=== PATIENT | male | born 1990 | race Caucasian/White ===

== ENCOUNTER 2020-04-22 17:03 | Emergency (ER) | payer BC, MEDICAID ==
[~2020-04-22] VITALS: Ht 172.7 cm; Wt 84.7 kg
[2020-04-22] MEDS ORDERED: ONDANSETRON 4MG/2ML VIAL IV ONE (19:15)
[2020-04-22] MEDS ORDERED: KETOROLAC 30 MG/ML 1ML VIAL IV ONE (19:15)
[2020-04-22] MEDS ORDERED: NS 1,000 ML IV ONE (19:15)
--- NOTE | 2020-04-22 19:19 | REPVR ---
PROCEDURE INFORMATION: Exam: XR Chest, 2 Views Exam date and time: 04/22/2020 7:16 PM Age: 29 years old Clinical indication: Other: Chest pain TECHNIQUE: Imaging protocol: XR of the chest Views: 2 views. COMPARISON: No relevant prior studies available. FINDINGS: Lungs: Unremarkable. No consolidation. Pleural space: Unremarkable. No pleural effusion. No pneumothorax. Heart/Mediastinum: Unremarkable. No cardiomegaly. Bones/joints: Unremarkable. IMPRESSION: No acute findings. Electronically signed by: Souleymane Cuellar On 04/22/2020 19:19:06 PM
[2020-04-22 19:35] LABS: HEMATOCRIT 43.6 % (42.0-52.0); HEMOGLOBIN 14.7 g/dl (13.5-17.5); MEAN CORPUSCULAR HGB CONC 33.7 g/dl (32.0-36.5); RED BLOOD COUNT 4.74 10^6/uL (4.30-6.10); WHITE BLOOD COUNT 7.2 10^3/uL (4.0-10.0)
[2020-04-22 19:36] LABS: BASO % 0.4 % (0.0-1.0); EOS # 0.1 10^3/uL (0.0-0.5); EOS % 1.4 % (0.0-3.0); LYMPH # 2.8 10^3/uL (1.5-5.0); LYMPH % 38.4 % (24.0-44.0); MONO # 0.6 10^3/uL (0.0-0.8); MONO % 7.9 % (0.0-5.0); NEUTROPHILS # 3.7 10^3/uL (1.5-8.5); NEUTROPHILS % 51.6 % (36.0-66.0); PLATELET COUNT, AUTOMATED 282 10^3/uL (150-450)
[2020-04-22 20:08] LABS: ALBUMIN 4.3 GM/DL (3.2-5.2); ALT/SGPT 41 U/L (12-78); BILIRUBIN,DIRECT 0.1 MG/DL (0.0-0.2); BILIRUBIN,TOTAL 0.4 MG/DL (0.2-1.0); CK-MB VALUE MASS 1.1 NG/ML (<3.6); CPK CREATINE PHOSPHOKINASE 166 U/L (39-308); LIPASE 143 U/L (73-393); MB/CK RELATIVE INDEX 0.66 (< OR =4); TROPONIN I < 0.02 NG/ML (< 0.10)
[2020-04-22 20:24] LABS: BLOOD UREA NITROGEN 16 MG/DL (7-18); CALCIUM LEVEL 9.6 MG/DL (8.5-10.1); CARBON DIOXIDE LEVEL 32 MEQ/L (21-32); CHLORIDE LEVEL 103 MEQ/L (98-107); CREATININE FOR GFR 0.78 MG/DL (0.70-1.30); GLOMERULAR FILTRATION RATE > 60.0 (>60); GLUCOSE, FASTING 90 MG/DL (70-100); POTASSIUM SERUM 4.1 MEQ/L (3.5-5.1); SODIUM LEVEL 138 MEQ/L (136-145)
[2020-04-22] MEDS ORDERED: CYCL-707 PO (20:29)
[2020-04-22] MEDS ORDERED: LIDOCAINE 5% (LIDODERM) PATCH TD ONE (20:30)
[2020-04-22] MEDS ORDERED: CYCLOBENZAPRINE 10MG TABLET PO ONE (20:30)
[2020-04-22 20:36] VITALS: BP 164/111
[2020-04-22] MEDS ORDERED: **NOTE PATIENT COMMENT** MISC XX SCH (21:00)
--- NOTE | 2020-04-23 07:34 | ECGEPIP ---
[facility] - ED Test Date: 2020-04-22 Pat Name: CINTHIA OCONNELL Department: Room: - Gender: Male Emergency Room Nurse: ESTEFANIA : 1990 Requested By: BLAINE THOMAS Order Number: [id number] Reading MD: Jaden Melgar Measurements Intervals Hardy Rate: 65 P: 69 AK: 149 QRS: 65 QRSD: 92 T: 52 QT: 387 QTc: 403 Interpretive Statements SINUS RHYTHM NO PRIORS FOR COMPARISON Electronically Signed on 04-23-2020 7:34:35 EDT by Jaden Melgar
== END 2020-04-22 20:47 | disposition home or self-care (01) ==
LOC: M ED 17:03
DX: M54.5 Low back pain (principal); R07.89 Other chest pain; R11.0 Nausea; F17.200 Nicotine dependence, unspecified, uncomplicated
CPT/HCPCS: 71046; 80048; 80076; 81001; 82550; 82553; 83690; 85025; 87490; 87590; 93005; 96361; 96374; 96375; 99284; J1885; J2405

== ENCOUNTER 2020-11-21 11:15 | Emergency (ER) | payer OTHER, BC ==
[~2020-11-21] VITALS: Ht 175.3 cm; Wt 88.5 kg
[~2020-11-21 11:15] MED LIST: CYCL-707 PO
--- NOTE | 2020-11-21 12:01 | REP ---
INDICATION: pain after rolling ankle. COMPARISON: None. TECHNIQUE: Four views of the right ankle are provided. FINDINGS: Ankle mortise is intact. No fracture or subluxation is seen. There is minimal anterior soft tissue swelling. Exam is otherwise unremarkable IMPRESSION: . Minimal anterior swelling. No fracture or subluxation seen. <Electronically signed by Hero Bautista > 11/21/20 [id number]
[2020-11-21 12:27] VITALS: BP 162/102
== END 2020-11-21 12:46 | disposition home or self-care (01) ==
LOC: M ED 11:15
DX: S93.411A Sprain of calcaneofibular ligament of right ankle, initial encounter (principal); X50.9XXA Other and unspecified overexertion or strenuous movements or postures, initial encounter; Y92.89 Other specified places as the place of occurrence of the external cause; Y99.0 Civilian activity done for income or pay; I10 Essential (primary) hypertension; F17.210 Nicotine dependence, cigarettes, uncomplicated

== ENCOUNTER → 2020-12-08 | Outpatient (REF) | payer BC ==
[2020-12-08 13:12] LABS: APPEARANCE, URINE CLEAR (CLEAR); BACTERIA, URINE AUTO NEGATIVE (NEGATIVE); BILIRUBIN, URINE AUTO NEGATIVE (NEGATIVE); BLOOD, URINE BLOOD NEGATIVE (NEGATIVE); COLOR, URINE YELLOW (YELLOW); GLUCOSE, URINE (UA) AUTO NEGATIVE (NEGATIVE); KETONE, URINE AUTO NEGATIVE (NEGATIVE); LEUKOCYTE ESTERASE, URINE AUTO NEGATIVE (NEGATIVE); MUCUS, URINE SMALL (NEGATIVE); NITRITE, URINE AUTO NEGATIVE (NEGATIVE); PROTEIN, URINE AUTO NEGATIVE (NEGATIVE); RBC, URINE AUTO 1 /HPF (0-3); SPECIFIC GRAVITY URINE AUTO 1.021 (1.002-1.035); SQUAMOUS EPITHELIAL CELL UR AU 0 /HPF (0-6); UROBILINOGEN, URINE AUTO 0.2 mg/dL (0.0-2.0); WBC, URINE AUTO 0 /HPF (0-3)
[2020-12-08 13:18] LABS: HEMOGLOBIN 16.1 g/dl (13.5-17.5); MEAN CORPUSCULAR HEMOGLOBIN 31.1 pg (27.0-33.0); MEAN CORPUSCULAR HGB CONC 33.5 g/dl (32.0-36.5); MEAN CORPUSCULAR VOLUME 92.7 fl (80.0-96.0); PLATELET COUNT, AUTOMATED 291 10^3/uL (150-450); RED BLOOD COUNT 5.18 10^6/uL (4.30-6.10); WHITE BLOOD COUNT 5.9 10^3/uL (4.0-10.0)
[2020-12-08 14:06] LABS: ALBUMIN 4.1 GM/DL (3.2-5.2); ALT/SGPT 39 U/L (12-78); BILIRUBIN,TOTAL 0.7 MG/DL (0.2-1.0); BLOOD UREA NITROGEN 12 MG/DL (7-18); CALCIUM LEVEL 9.4 MG/DL (8.5-10.1); CARBON DIOXIDE LEVEL 28 MEQ/L (21-32); CHLORIDE LEVEL 103 MEQ/L (98-107); CREATININE FOR GFR 0.72 MG/DL (0.70-1.30); GLOMERULAR FILTRATION RATE > 60.0 (>60); GLUCOSE, FASTING 86 MG/DL (70-100); POTASSIUM SERUM 4.3 MEQ/L (3.5-5.1); SODIUM LEVEL 139 MEQ/L (136-145); TOTAL PROTEIN 7.7 GM/DL (6.4-8.2)
[2020-12-08 14:32] LABS: HIV 1&2 SCREEN CENTAUR NEGATIVE (NEGATIVE)
== END ==
LOC: M SFHCPLAZ 09:48
PROVIDERS: ATTEND Family Medicine
DX: R03.0 Elevated blood-pressure reading, without diagnosis of hypertension (principal)

== ENCOUNTER 2021-02-09 19:09 | Emergency (ER) | payer MEDICAID, OTHER ==
[~2021-02-09] VITALS: Ht 175.3 cm; Wt 96.0 kg
[2021-02-09] MEDS ORDERED: LISI10TA22 (19:46)
[2021-02-10 00:06] LABS: BASO # 0.1 10^3/uL (0.0-0.2); BASO % 0.5 % (0.0-1.0); EOS # 0.1 10^3/uL (0.0-0.5); EOS % 0.7 % (0.0-3.0); HEMATOCRIT 44.9 % (42.0-52.0); HEMOGLOBIN 15.3 g/dl (13.5-17.5); LYMPH # 3.2 10^3/uL (1.5-5.0); MEAN CORPUSCULAR HEMOGLOBIN 31.5 pg (27.0-33.0); MEAN CORPUSCULAR HGB CONC 34.1 g/dl (32.0-36.5); MEAN CORPUSCULAR VOLUME 92.4 fl (80.0-96.0); MONO # 0.7 10^3/uL (0.0-0.8); MONO % 6.3 % (2.0-8.0); NEUTROPHILS # 6.7 10^3/uL (1.5-8.5); PLATELET COUNT, AUTOMATED 284 10^3/uL (150-450); RED BLOOD COUNT 4.86 10^6/uL (4.30-6.10); WHITE BLOOD COUNT 10.7 10^3/uL (4.0-10.0)
[2021-02-10 00:19] LABS: BLOOD UREA NITROGEN 14 MG/DL (7-18); CALCIUM LEVEL 9.2 MG/DL (8.5-10.1); CARBON DIOXIDE LEVEL 30 MEQ/L (21-32); CHLORIDE LEVEL 103 MEQ/L (98-107); CREATININE FOR GFR 0.83 MG/DL (0.70-1.30); GLOMERULAR FILTRATION RATE > 60.0 (>60); GLUCOSE, FASTING 93 MG/DL (70-100); POTASSIUM SERUM 3.9 MEQ/L (3.5-5.1); SODIUM LEVEL 137 MEQ/L (136-145)
[2021-02-10 00:30] VITALS: BP 171/91
--- NOTE | 2021-02-10 08:41 | REP ---
INDICATION: CHEST PAIN. COMPARISON: 04/22/2020. TECHNIQUE: Single portable AP view of the chest was performed. FINDINGS: There is no acute infiltrate or pulmonary edema. Lungs are clear. The heart is not significantly enlarged. The mediastinal silhouette is unremarkable. The visualized osseous structures are intact. IMPRESSION: No acute pulmonary disease. <Electronically signed by Genaro Matos > 02/10/21 [id number]
== END 2021-02-10 00:45 | disposition home or self-care (01) ==
LOC: M ED 19:09
DX: F43.0 Acute stress reaction (principal); I10 Essential (primary) hypertension; Z79.899 Other long term (current) drug therapy; F17.210 Nicotine dependence, cigarettes, uncomplicated

== ENCOUNTER → 2021-02-23 | Outpatient (CLI) | payer OTHER ==
[~2021-02-23] MED LIST changes: +LISI10TA22
--- NOTE | 2021-02-24 08:40 | REP ---
INDICATION: RT ANKLE SPRAIN. COMPARISON: None. TECHNIQUE: Sagittal fat suppressed T2 and proton density. Coronal proton density, fat suppressed proton density and STIR. Axial fat suppressed proton density and T1. FINDINGS: The tendons of the tibialis anterior, extensor hallucis, and extensor digitorum muscles are intact and of normal appearing low signal throughout. The tendons of the tibialis posterior, flexor digitorum, and flexor hallucis muscles are intact and of normal appearing low signal throughout. The Achilles tendon is intact and of normal appearing low signal throughout. The peroneal tendons are intact and of normal appearing low signal throughout. The anterior and posterior inferior tibiofibular ligaments are intact. The anterior and posterior talofibular ligaments are intact. The calcaneofibular ligament is intact. The ligaments within the sinus tarsi are within normal limits and the sinus tarsi fat signal is preserved. The subtalar joints are within normal limits. No abnormal cyst formation is seen in the os calcis deep to the angle of Gissane. The lateral talar process is sharp and without cystic degenerative change. There is a mild to moderate heel valgus deformity. The chondral surfaces of the talar dome and tibial plafond are smooth and without abnormal chondral or subchondral signal. There is no joint effusion. The plantar soft tissues are within normal limits. IMPRESSION: There is no evidence of acute internal derangement. MRI findings are within normal limits as described above. <Electronically signed by Randell King > 02/24/21 [id number]
== END ==
LOC: M RAD 18:07
PROVIDERS: ATTEND Orthopaedic Surgery Adult Reconstructive Orthopaedic Surgery
DX: S93.401D Sprain of unspecified ligament of right ankle, subsequent encounter (principal); Y92.9 Unspecified place or not applicable; Y93.9 Activity, unspecified; Y99.9 Unspecified external cause status

== ENCOUNTER → 2021-12-28 | Outpatient (CLI) | payer OTHER ==
[2021-12-28 15:05] LABS: BLOOD UREA NITROGEN 15 MG/DL (7-18); CALCIUM LEVEL 9.2 MG/DL (8.5-10.1); CARBON DIOXIDE LEVEL 32 MEQ/L (21-32); CHLORIDE LEVEL 105 MEQ/L (98-107); CREATININE FOR GFR 0.93 MG/DL (0.70-1.30); GLOMERULAR FILTRATION RATE > 60.0 (>60); GLUCOSE, FASTING 91 MG/DL (70-100); POTASSIUM SERUM 4.8 MEQ/L (3.5-5.1); SODIUM LEVEL 140 MEQ/L (136-145)
== END ==
LOC: M PLALAB 10:16
PROVIDERS: ATTEND Student in an Organized Health Care Education/Training Program
DX: I10 Essential (primary) hypertension (principal)

== ENCOUNTER → 2021-12-28 | Outpatient (REF) | payer OTHER | LOC: M SFHCPLAZ 09:58 | PROVIDERS: ATTEND Family Medicine | DX: I10 Essential (primary) hypertension (principal) ==

== ENCOUNTER → 2023-06-03 | Outpatient (CLI) | payer OTHER ==
[2023-06-03 15:47] LABS: ALBUMIN 4.2 G/DL (3.2-5.2); ALKALINE PHOSPHATASE 62 U/L (46-116); ALT/SGPT 38 U/L (7.0-40); AST/SGOT 21 U/L (<34); BILIRUBIN,TOTAL 0.7 MG/DL (0.3-1.2); BLOOD UREA NITROGEN 14 MG/DL (9-23); CALCIUM LEVEL 9.6 MG/DL (8.5-10.1); CARBON DIOXIDE LEVEL 31 MMOL/L (20-31); CHLORIDE LEVEL 104 MMOL/L (98-107); CHOLESTEROL LEVEL 216 MG/DL (<200); CHOLESTEROL RISK RATIO 5.24 (<5); CREATININE FOR GFR 0.81 MG/DL (0.70-1.30); GLOMERULAR FILTRATION RATE > 60.0 (>60); GLUCOSE, FASTING 91 MG/DL (60-100); HDL CHOLESTEROL 41.2 MG/DL (>40); LDL CHOLESTEROL 143.6 MG/DL (<100); NON-HDL-C 174.8 MG/DL; POTASSIUM SERUM 4.6 MMOL/L (3.5-5.1); SODIUM LEVEL 141 MMOL/L (136-145); TOTAL PROTEIN 7.5 G/DL (5.7-8.2); TRIGLYCERIDES LEVEL 156 MG/DL (<150)
[2023-06-03 15:49] LABS: BASO % 0.4 % (0.0-1.0); EOS # 0.1 10^3/uL (0.0-0.5); EOS % 1.3 % (0.0-3.0); HEMATOCRIT 44.2 % (42.0-52.0); LYMPH # 2.4 10^3/uL (1.5-5.0); LYMPH % 33.7 % (24.0-44.0); MEAN CORPUSCULAR HGB CONC 33.9 g/dl (32.0-36.5); MEAN CORPUSCULAR VOLUME 94.2 fl (80.0-96.0); MONO # 0.6 10^3/uL (0.0-0.8); NEUTROPHILS % 56.5 % (36.0-66.0); PLATELET COUNT, AUTOMATED 323 10^3/uL (150-450); RED BLOOD COUNT 4.69 10^6/uL (4.30-6.10)
[2023-06-03 16:13] LABS: CREATININE, URINE 192.6 MG/DL; MAU/CREAT RATIO 3.6 MCG/MG (0.0-30.0)
== END ==
LOC: M PLALAB 11:59
PROVIDERS: ATTEND Student in an Organized Health Care Education/Training Program
DX: G47.30 Sleep apnea, unspecified (principal); I10 Essential (primary) hypertension

== ENCOUNTER → 2024-03-13 | Outpatient (CLI) | payer BC, OTHER ==
[2024-03-13 13:51] LABS: HEMOGLOBIN 15.2 g/dl (13.5-17.5); MEAN CORPUSCULAR HGB CONC 33.8 g/dl (32.0-36.5); MEAN CORPUSCULAR VOLUME 94.7 fl (80.0-96.0); PLATELET COUNT, AUTOMATED 318 10^3/uL (150-450); RED BLOOD COUNT 4.75 10^6/uL (4.30-6.10); WHITE BLOOD COUNT 6.1 10^3/uL (4.0-10.0)
[2024-03-13 14:17] LABS: ALBUMIN 4.3 G/DL (3.2-5.2); ALKALINE PHOSPHATASE 64 U/L (46-116); ALT/SGPT 41 U/L (7.0-40); AST/SGOT 18 U/L (<34); BILIRUBIN,TOTAL 0.4 MG/DL (0.3-1.2); BLOOD UREA NITROGEN 20 MG/DL (9-23); CALCIUM LEVEL 9.6 MG/DL (8.5-10.1); CARBON DIOXIDE LEVEL 32 MMOL/L (20-31); CHLORIDE LEVEL 102 MMOL/L (98-107); CREATININE FOR GFR 0.77 MG/DL (0.70-1.30); GLOMERULAR FILTRATION RATE > 60.0 (>60); GLUCOSE, FASTING 94 MG/DL (60-100); POTASSIUM SERUM 4.2 MMOL/L (3.5-5.1); SODIUM LEVEL 136 MMOL/L (136-145); TOTAL PROTEIN 7.6 G/DL (5.7-8.2)
[2024-03-13 14:18] LABS: FREE T4 1.38 NG/DL (0.89-1.76); THYROID STIMULATING HORMONE 3.797 uIU/ML (0.55-4.78)
[2024-03-13 14:27] LABS: CREATININE, URINE 268.4 MG/DL; MAU/CREAT RATIO 3.3 MCG/MG (0.0-30.0)
[2024-03-13 14:34] LABS: HEMOGLOBIN A1c 5.2 % (4.0-6.0)
== END ==
LOC: M PLALAB 09:28
PROVIDERS: ATTEND Student in an Organized Health Care Education/Training Program
DX: Z00.00 Encounter for general adult medical examination without abnormal findings (principal)

== ENCOUNTER → 2024-07-03 | Outpatient (CLI) | payer BC ==
[2024-07-03 15:06] LABS: BILIRUBIN,DIRECT 0.2 MG/DL (<0.4); BILIRUBIN,TOTAL 0.8 MG/DL (0.3-1.2)
== END ==
LOC: M PLALAB 12:21
PROVIDERS: ATTEND Student in an Organized Health Care Education/Training Program
DX: R74.01 Elevation of levels of liver transaminase levels (principal)

== ENCOUNTER → 2024-08-16 | Outpatient (CLI) | payer BC | LOC: M RAD 07:31 | PROVIDERS: ATTEND Student in an Organized Health Care Education/Training Program | DX: R74.01 Elevation of levels of liver transaminase levels (principal); K76.0 Fatty (change of) liver, not elsewhere classified ==

== ENCOUNTER → 2025-06-11 | Outpatient (CLI) | payer BC ==
[2025-06-11 15:35] LABS: PLATELET COUNT, AUTOMATED 324 10^3/uL (150-450)
[2025-06-11 15:41] LABS: ESTIMATED AVERAGE GLUCOSE 103.0 MG/DL (60-110)
[2025-06-11 16:01] LABS: ALT/SGPT 122 U/L (7.0-40); AST/SGOT 48 U/L (<34); CALCIUM LEVEL 9.3 MG/DL (8.5-10.1); CARBON DIOXIDE LEVEL 30 MMOL/L (20-31); CHLORIDE LEVEL 102 MMOL/L (98-107); CHOLESTEROL LEVEL 239 MG/DL (<200); CHOLESTEROL RISK RATIO 5.46 (<5); CREATININE FOR GFR 0.94 MG/DL (0.70-1.30); GLOMERULAR FILTRATION RATE > 90.0 (>60); LDL CHOLESTEROL 160.3 MG/DL (<100); NON-HDL-C 195.3 MG/DL; POTASSIUM SERUM 4.3 MMOL/L (3.5-5.1); SODIUM LEVEL 142 MMOL/L (136-145); TRIGLYCERIDES LEVEL 175 MG/DL (<150)
== END ==
LOC: M PLALAB 13:27
DX: K76.0 Fatty (change of) liver, not elsewhere classified (principal)